=== PATIENT | male | born 1965 | race Caucasian/White ===

== ENCOUNTER 2017-08-09 15:19 | Emergency (ER) | payer OTHER ==
[~2017-08-09] VITALS: Ht 188 cm; Wt 97.7 kg
[2017-08-09] MEDS ORDERED: DAILY VITAMIN1 EAC3 PO (15:34)
[2017-08-09] MEDS ORDERED: FISH OIL1 IU (15:34)
[2017-08-09] MEDS ORDERED: TESTOSTERO200 MG/1 M IM (15:34)
[2017-08-09] MEDS ORDERED: GARLIC1 EAC1 (15:35)
[2017-08-09] MEDS ORDERED: CEPHALEXIN500 M1 PO (16:40)
[2017-08-09 16:56] VITALS: BP 121/84
== END 2017-08-09 17:04 | disposition home or self-care (01) ==
LOC: ED 15:19
DX: S60.551A Superficial foreign body of right hand, initial encounter (principal); W20.1XXA Struck by object due to collapse of building, initial encounter; Y92.61 Building [any] under construction as the place of occurrence of the external cause

== ENCOUNTER → 2020-03-06 | Outpatient (CLI) | payer BC ==
[~2020-03-06] MED LIST: CEPHALEXIN500 M1 PO; DAILY VITAMIN1 EAC3 PO; FISH OIL1 IU; GARLIC1 EAC1; TESTOSTERO200 MG/1 M IM
== END ==
LOC: RAD 14:05
DX: I82.431 Acute embolism and thrombosis of right popliteal vein (principal); I82.4Z1 Acute embolism and thrombosis of unspecified deep veins of right distal lower extremity